=== PATIENT | male | born 1980 | race Caucasian/White ===

== ENCOUNTER 2018-03-22 18:07 | Emergency (ER) | payer OTHER ==
[~2018-03-22] VITALS: Ht 175.3 cm; Wt 106.1 kg
[2018-03-22 18:14] VITALS: BP 145/103
--- NOTE | 2018-03-22 18:20 | NUR ---
PT TAKEN TO BED 1. REPORT GIVEN TO NELLY MENDOZA.
--- NOTE | 2018-03-22 18:30 | NUR ---
PUNCTURE WOUND S/P USING A DRILL APROX 40 MINS AGO. DENIES N/V/D; SKIN IS PINK/WARM/DRY; AAOX4 WITH EVEN AND STEADY GAIT; LUNGS CLEAR BL; HR EVEN AND REGULAR; PT DENIES ANY FEVER, CP, SOB, OR COUGH AT THIS TIME; PATIENT STATES PAIN OF 5/10 AT THIS TIME; VSS; PATIENT POSITIONED FOR COMFORT; HOB ELEVATED; BEDRAILS UP X2; BED DOWN. ER MD MADE AWARE OF PT STATUS.
[2018-03-22] MEDS ORDERED: BACITRACIN OINT 500 UNITS/GM PKT TP ONE (19:10)
[2018-03-22] MEDS ORDERED: KETOROLAC 30 MG/ML VIAL ONE (19:23)
[2018-03-22] MEDS ORDERED: KETOROLAC 30 MG/ML VIAL IM ONE (19:35)
[2018-03-22 20:06] VITALS: BP 140/95
--- NOTE | 2018-03-22 20:07 | NUR ---
Patient discharged with v/s stable. Written and verbal after care instructions given and explained. Patient alert, oriented and verbalized understanding of instructions. Ambulatory with steady gait. All questions addressed prior to discharge. ID band removed. Patient advised to follow up with PMD. Rx of BACITRACIN, NAPROSYN given. Patient educated on indication of medication including possible reaction and side effects. Opportunity to ask questions provided and answered.
== END 2018-03-22 20:06 | disposition home or self-care (01) ==
LOC: MED 18:07
DX: S61.432A Puncture wound without foreign body of left hand, initial encounter (principal); Z23 Encounter for immunization; W27.8XXA Contact with other nonpowered hand tool, initial encounter; Y93.89 Activity, other specified; Y92.89 Other specified places as the place of occurrence of the external cause; Y99.8 Other external cause status
CPT/HCPCS: 73130; 90471; 90715; 96372; 99284; J1885; Q0092